=== PATIENT | male | born 1995 | race Caucasian/White ===

== ENCOUNTER → 2023-11-15 12:40 | Outpatient (BNVA) | payer SELFPAY | PROVIDERS: Visit Provider Physician Assistant | DX: Z02.79 Encounter for issue of other medical certificate (principal) ==

== ENCOUNTER 2025-01-28 13:04 | Outpatient (AMB) | payer OTHER, SELFPAY ==
--- NOTE | 2025-01-28 13:05 | MHC.PC.OV ---
Vital Signs 01/28/25 13:15 01/28/25 13:25 Height 5 ft 6 in Weight 180 lb BMI 29.0 BP 145/84 H 140/80 H Blood Pressure Location Rt brachial Lt brachial Position Sitting Sitting Respiration 16 Pulse 119 H 120 H Pulse Source Pulse Oximeter Auscultation Temp 98.3 F Temp Source Oral Pulse Oximetry (%) 100 Oxygen Delivery Method Room Air Intake Visit Reasons: AGER TENDER Intake Note: patient here for new patient visit Surface Water Manager Required: No Allergies No Known Allergies Allergy (Verified 01/28/25 13:20) Medication List - Last Reconciled 01/28/25 by Tammy Plummer CNP No Known Home Meds Tobacco use date assessed: 01/28/25 Dental Screening Dental Screen Date: 01/28/25 Did you have a dental visit in the last 12 months?: No Did you have a dental problem in the last 6 months where you did not have access to dental care?: No Was dental information given to patient?: Yes HPI HPI Comments History of Present Illness Details 29-year-old male presents to [facility] care. Prior PCP? - Unknown Last office visit/CPE/labs - Several years ago Acute issue(s) - Elevated BP and HR: Notes elevated blood pressure and heart rate during doctor's visits. His resting heart rate is usually in the 90s. Past Medical History - None Surgical History - Adenoidectomy, tonsillectomy Family History - None Social History - Currently smokes 5 cigarettes daily, has been smoking for 11 years, h/o no more than 10 cigarettes daily. History of vaping nicotine x 2 years, quit 2-3 months ago. Drinks 1 beer occasionally, has not drank in the past 3 months. Denies recreational drug use - Has been making healthy dietary choices. Active but does not exercise. Generally sleep well - He notes that he is sexually active, in a monogamous relationship, and has no concern for STDs Health maintenance - Does not recall if he has an eye exam by an biofuels production technician. Referred to Ophthalmology for routine care - Last dental visit was in 6 years ago; encouraged to schedule an appointment with his dentist for routine dental care - Unsure of last tetanus vaccine; Declined Tdap vaccine today - Has not been vaccinated for the flu this season; declines vaccination [facility] Surgical History (Updated 01/28/25 @ 13:15 by Beatrice Argueta MA) History of adenoidectomy History of tonsillectomy Family History (Updated 01/28/25 @ 13:13 by Beatrice Argueta MA) Father No problems noted. Mother No problems noted. Social History Housing: House Patient Tobacco Use Status: Current everyday Tobacco user Cigarettes Per Day: 5 e-Cigarette/Vaping Use: Former Use Second Hand Smoke Exposure: No service: No Current occupational status: employed Current occupation: construction Current occupational exposures/hazards: No Cognitive needs: No Hearing needs: No Vision needs: No Questionnaire PHQ-9 Over the last 2 weeks, how often have you been bothered by any of the following problems? 1. Little interest or pleasure in doing things: not at all 2. Feeling down, depressed, or hopeless: not at all 3. Trouble falling or staying asleep, or sleeping too much: not at all 4. Feeling tired or having little energy: not at all 5. Poor appetite or overeating: not at all 6. Feeling bad about yourself - or that you are a failure or have let yourself or your family down: not at all 7. Trouble concentrating on things, such as reading the newspaper or watching television: not at all 8. Moving or speaking so slowly that other people could have noticed. Or the opposite - being so fidgety or restless that you have been moving around a lot more than usual: not at all 9. Thoughts that you would be better off or of hurting yourself in some way: not at all Total score: 0 Depression Screening Interpretation: Negative Depression Screening Done: Yes 86063 - PHQ-9 Billing: Yes Source: Developed by Drs. Rex Hernadez, Leslie Romero, Pradip Lanza and colleagues, with an educational leandra from [email or web address]. Thrive Questionnaire Date Thrive assessed: 01/28/25 I am a: Patient What is your living situation today?: I have a steady place to live Within the past 12 months, did the food you bought not last and you didn't have the money to get more?: I choose not to answer this question Within the past 12 months, did you worry whether your food would run out before you got money to buy more?: I choose not to answer this question Do you have trouble paying for medicines?: I choose not to answer this question Do you have trouble getting transportation to medical appointments?: No Do you have trouble paying your heating and electricity bill?: I choose not to answer this question Do you have trouble taking care of your child, family member or friend?: No Do you have trouble with day-to-day activities such as bathing, preparing meals, shopping, managing finances, etc.?: No Are you currently unemployed and looking for a job?: I choose not to answer this question Are you interested in more education?: Yes Please select the resources that you would like help with: None Currently or been in a relationship where the following occur: No concerns reported THRIVE Score: 0 AUDIT C Alcohol Use Questionnaire (AUDIT-C) 1. How often do you have a drink containing alcohol?: Never Total Score: 0 JOCELYN-7 AMB Questionnaire JOCELYN-7 Date JOCELYN - 7 assessed: 01/28/25 Feeling nervous, anxious, or on edge: 1 = Several days Not being able to stop or control worryin = Several days Worrying too much about different things: 1 = Several days Trouble relaxin = Not at all Being so restless that it is hard to sit still: 0 = Not at all Becoming easily annoyed or irritable: 0 = Not at all Feeling afraid as if something awful might happen: 1 = Several days Total JOCELYN-7 score (0-4 normal; 5-9 mild; 10-14 moderate; 15-21 severe): 4 Source: Developed by Drs. Rex Hernadez, Leslie Romero, Pradip Lanza and colleagues, with an educational leandra from [email or web address]. JOCELYN-7 Assessment Billing JOCELYN-7 Assessment Tool: JOCELYN-7 Assessment 01027 Review of Systems Const Details: Denies chills, Denies fatigue, Denies fever(s), Denies headache(s) and Denies weakness HEENT Denies change in vision, Denies dizziness, Denies headache(s), Denies hearing loss, Denies nasal congestion, Denies sinus pain, Denies sinus pressure and Denies sore throat Card Denies chest pain, Denies lightheadedness, Denies dyspnea and Denies other (palpitations) Resp Denies cough, Denies dyspnea and Denies wheezing GI Denies abdominal pain, Denies melena, Denies hematochezia, Denies change in bowel habits, Denies dyspepsia and Denies nausea Denies hematuria and Denies dysuria Musc Denies abnormal gait, Denies myalgias, Denies arthralgias, Denies numbness and Denies tingling Skin/Breast Denies rash, Denies unusual bruising and Denies wounds Neuro Denies abnormal gait, Denies dizziness, Denies headache(s), Denies memory loss, Denies numbness, Denies Sensory deficit (Neuro), Denies tingling and Denies weakness Psych Denies anxiety, Denies depression and Denies memory loss Endo Denies cold intolerance, Denies fatigue, Denies heat intolerance, Denies polydipsia and Denies polyuria Clark/Lymph Denies easy bleeding and Denies easy bruising Aller/Immun Denies wheezing Physical exam (Primary Care) Depression Screening Interpretation: Negative Currently or been in a relationship where the following occur: No concerns reported Const Other: General: no acute distress, well developed, alert and awake Nutritional Appearance: well nourished Orientation/consciousness: patient oriented x3 HENMT Head: Yes normocephalic and Yes atraumatic Ears: hearing grossly normal bilaterally and TM's normal bilaterally General nose exam: Normal external nose present and Normal nares present Mouth: Normal oral and palatal mucosa present and moist mucous membranes Teeth and gingiva: dentition normal Throat: Yes oropharynx normal Eyes Pupils: Equal, round and reactive pupils present and Pupil accommodation reflex normal EOM: EOMs intact bilaterally Neck Neck: Yes normal visual inspection, Yes no lymphadenopathy and Yes trachea midline Thyroid: Thyroid normal Carotids: no bruits Lymphatic: no lymphadenopathy noted Chest Chest palpation & inspection: normal inspection of the chest Resp Effort & Inspection: normal respiratory effort Auscultation: clear to auscultation bilaterally Cardio Rate: regular rate Rhythm: regular rhythm Heart sounds: S1 normal heart sound present, S2 normal heart sound present, no gallops, no murmurs and no rubs Bruits: no abdominal aortic bruits and no carotid bruits GI Palpation (GI): No Abdominal aortic bruit present, Soft to palpation, nontender, No hepatosplenomegaly present and No Rebound tenderness present Auscultation: normal bowel sounds General: Yes no CVA tenderness Back/Spine/Pelvis Back: no CVA tenderness Cervical Spine: cervical ROM normal and No Cervical spine tenderness Thoracic/Lumbar Spine: thoraco-lumbar ROM normal, No pain with thoraco-lumbar ROM, No thoracic spinal tenderness and No lumbar spinal tenderness Skin General: warm and dry. Normal skin color. Normal skin turgor Lesions: no lesions Rashes: no rashes Trauma: no lacerations or abrasions Wounds: no wounds Nails: normal Neuro General: patient oriented x3, gait normal and CN's II-XI intact bilaterally Cranial nerves: Yes Equal, round and reactive pupils present Cognition (Neuro): normal cognition Gait exam (Neuro): Normal gait present Motor exam (neuro): 5/5 motor strength present throughout Sensory Exam: No Sensory deficit (Neuro) Deep tendon reflexes (DTR's): Right patellar reflex intensity grade: 2+ and Left patellar reflex intensity grade: 2+ Extrem General: Yes normal to inspection, No edema and No calf tenderness Psych Appearance: grossly normal Affect: normal affect Attitude: cooperative Thought process: Normal thought process present Coding Level of Care Code New Pt Level 3 (70809) New Pt Prev Care 18-39yr(35389 Diagnoses Normal physical examination, routine Z00.00 Elevated blood pressure reading without diagnosis of hypertension R03.0 Eye exam, routine Z01.00 Smoking 1/2 pack a day or less F17.210 Laboratory tests ordered as part of a complete physical exam (CPE) Z00.00 Additional Codes JOCELYN-7 Assessment Billing - JOCELYN-7 Assessment Tool: JOCELYN-7 Assessment 34321 ([id number]) PHQ-9 - 28474 - PHQ-9 Billing: Yes ([id number]) Assessment & Plan Assessment & Plan (1) Normal physical examination, routine: Code(s): Z00.00 - Encounter for general adult medical examination without abnormal findings Category: Medical Plan: No significant functional limitation noted. Health that diet and routine exercise encouraged. Perform lab work 2-3 days before next visit. Follow-up in 3 weeks for elevated blood pressure and labs review. Return sooner with symptoms or concerns. Verbalized understanding and agreed with treatment plan. (2) Elevated blood pressure reading without diagnosis of hypertension: Code(s): R03.0 - Elevated blood-pressure reading, without diagnosis of hypertension Category: Medical Plan: Resting blood pressure is 140/80, slightly above goal of less than 140/90, heart rate is 120. His blood pressure and heart rate are usually elevated during doctor's visits. His resting heart rate is usually in the 90s. Routine exercise and low-sodium diet encouraged. Follow-up in 3 weeks for blood pressure and heart rate monitoring. Verbalized understanding and agreed with the plan. (3) Eye exam, routine: Code(s): Z01.00 - Encounter for examination of eyes and vision without abnormal findings Category: Medical Plan: Does not recall if he has an eye exam by an biofuels production technician. Referred to Ophthalmology for routine care. (4) Smoking 1/2 pack a day or less: Code(s): F17.210 - Nicotine dependence, cigarettes, uncomplicated Category: Social Hx Plan: He currently smokes 5 cigarettes daily and has been smoking for 11 years, h/o no more than 10 cigarettes daily. Instructed on the health risks and complications of smoking cigarettes encouraged smoking cessation. He notes that he intends to stop smoking and will purchase [id number] nicotine patch or gum. (5) Laboratory tests ordered as part of a complete physical exam (CPE): Code(s): Z00.00 - Encounter for general adult medical examination without abnormal findings Category: Medical Plan: Fasting labs ordered as part of a complete physical exam. Advised to fast for at least 10 hours before getting labs drawn. May drink water Verbalized understanding and agreed with treatment plan. Orders: Orders Complete Blood Count Auto Diff Today Z00.00 - Encounter for general adult medical examination without abnormal findings Comprehensive [place]. Panel Fast Today Z00.00 - Encounter for general adult medical examination without abnormal findings Vitamin D 25-OH Total Today Z00.00 - Encounter for general adult medical examination without abnormal findings Lipid Panel Today Z00.00 - Encounter for general adult medical examination without abnormal findings Microalbumin, Random (w Creat) Today Z00.00 - Encounter for general adult medical examination without abnormal findings TSH reflex Free T4 Today Z00.00 - Encounter for general adult medical examination without abnormal findings UA CC w/rflx Micro + Cult Today Z00.00 - Encounter for general adult medical examination without abnormal findings
[2025-01-28 13:15] VITALS: BP 145/84; PULSE 119; RESP 16; TEMP 36.8; O2SAT 100; BMI 29.0
[2025-01-28 13:25] VITALS: BP 140/80; PULSE 120
== END 2025-01-28 13:45 | disposition home or self-care (01) ==
LOC: HO.HMCFM 13:05
PROVIDERS: Visit Provider Nurse Practitioner Family
DX: Z00.00 Encounter for general adult medical examination without abnormal findings (principal); R03.0 Elevated blood-pressure reading, without diagnosis of hypertension; F17.210 Nicotine dependence, cigarettes, uncomplicated

== ENCOUNTER → 2025-01-28 13:04 | Outpatient (BNVA) | payer OTHER, SELFPAY | PROVIDERS: Visit Provider Nurse Practitioner Family | DX: Z00.01 Encounter for general adult medical examination with abnormal findings (principal); R03.0 Elevated blood-pressure reading, without diagnosis of hypertension; F17.210 Nicotine dependence, cigarettes, uncomplicated; Z71.6 Tobacco abuse counseling | CPT/HCPCS: 96127; 99202; 99385 ==

== ENCOUNTER 2025-02-12 13:10 | Outpatient (REF) | payer OTHER, SELFPAY ==
--- OUTSIDE RECORDS SUMMARY | 2025-02-12 13:38 | XMS_ITS | Encounter Summary ---
Author Organization [facility] Address [address] [place] [id number] Phone Care Team Providers Care Vp Client Services Name Role Phone Rex Rojo MD Primary Care Provider [phone] Encounter Details Date Type Department Care Team (Late st Contact Info) Description 03/23/2018 Conversion Encounter [facility] [address] [place] [address] Rex Rojo MD [address] [place] [address] Social History Tobacco Use Types Packs/Day Years Used Date Smoking Tobacco: Never Assessed Sex and Gender Information Value Date Recorded Sex Assigned at Not on file Legal Sex Male 6:09 PM EDT Gender Identity Not on file Sexual Orientation Not on file documented as of this encounter Plan of Treatment Not on file documented as of this encounter Visit Diagnoses Not on filedocumented in this encounter Care Teams Vp Client Services Relationship Specialty Start Date End Date Rex Rojo MD [address] [place] [address] PCP - General 03/12/18 08/05/24 documented as of this encounter
--- OUTSIDE RECORDS SUMMARY | 2025-02-12 13:38 | XMS_ITS | Clinical Summary ---
Author Organization [facility] Address [address] [place] [id number] Phone Care Team Providers Care Financial Analysis Consultant Name Role Phone Unavailable Primary Care Provider Unavailabl e Immunizations Immunization Administration Dates Next Due DTaP 01/14/2002, 8,07/08/1997,04/29,02/23/1997 HPV, Quadrivalent 07/08/2014,08/06/2013,06/05/20 13 Hep B, ped/adol 10/04/1997,02/23/1997,1996 Hib (PRP-T) 04/11/1998, 7,04/29/1997,02/23 IPV 01/14/2002 Influenza, injectable, quadrivalent 07/27/2011 Influenza, injectable, quadr ivalent, preservative free 07/08/2014 MMR 12/26/2000,12/29/1997 Meningococcal Conj (Menactra) MCV4P 06/05/2013,0 02/11/2008 OPV 12/29/1997,04/29/1997,02/23/1997 Tdap 02/11/2008 Varicella 02/11/2008,12/26/2000 Family History Relation Name Status Comments Father Alive healthy Father's Sister Alive Maternal Grandfather Maternal Grandmother cancer/ Mother Alive bi-polar/thyroi d Other Alive Siblings: Social History Tobacco Use Types Packs/Day Years Used Date Smoking Tobacco: Never Assessed Sex and Gender Information Value Date Recorded Sex Assigned at Not on file Legal Sex Male 6:09 PM EDT Gender Identity Not on file Sexual Orientation Not on file Last Filed Vital Signs Vital Sign Reading Time Taken Comments Blood Pressure 118/72 04/07/2015 12:00 AM EDT Pulse 104 09/11/2013 12:00 AM EST Temperature 37.2 ??C (98.9 ??F) 04/07/2015 12:00 AM E DT Respiratory Rate - - Oxygen Saturation 100% 09/11/2013 12:00 AM EST Inhaled Oxygen Concentration - - Weight 60 kg (132 lb 3.2 oz) 04/07/2015 12:00 AM EDT Height 168.3 cm (5' 6.25 ) 04/07/2015 12:00 AM E DT Body Mass Index 21.18 04/07/2015 12:00 AM EDT Plan of Treatment Health Maintenance Due Date Last Done Comments DTaP,Tdap,and Td Vaccines (7 - Td or Tdap) 02/10/2018 02/11/2008, 01/14/2002, 04/11/1998, Additional history exists Influenza Vaccines (#1) 2024 07/08/2014, 07/27 COVID-19 Vaccine ( season) 2024 Hepatitis B Vaccines Completed 10/04/1997, 02/23/1997, 1996 HIB Vaccines Completed 04/11/1998, 02/1997, 04/29/1997, Additional history exists MMR Vaccines Completed 12/26/2000, 12/29/1997 IPV Vaccines Completed 01/14/2002, 12/06, 04/29/1997, Additional history exists Varicella Vaccines Completed 02/11/2008, 12/26/2000 Meningococcal Vaccine Completed 06/05/2013, 008 HPV Vaccines Completed 07/08/2014, 01/2013, 06/05/2013 Hepatitis A Vaccines Aged Out No long er eligible based on patient's age to complete this topic Men B Vaccine Aged Out No longer elig ible based on patient's age to complete this topic Pneumococcal Vaccine Aged Out No long er eligible based on patient's age to complete this topic
[2025-02-12 14:19] LABS: MANUAL DIFF FLAG NO
[2025-02-12 14:29] LABS: Basophils Percent Auto 0.3 % (0-2); Eosinophils Absolute Auto 0.1 X10*3/uL (0.0-0.4); Eosinophils Percent Auto 1.3 % (0-4); Hematocrit 42.8 % (42.0-52.0); Hemoglobin 14.9 g/dl (14.0-18.0); Imm Gran Abs Auto 0.05 X10*3/uL (0.00-0.03); Imm Gran Pct Auto 0.5 % (0.0-0.4); Lymphocytes Absolute Auto 2.6 X10*3/uL (1.2-4.9); Lymphocytes Percent Auto 27.4 % (20-40); Mean Corpuscular HGB Conc 34.8 g/dl (31.0-36.0); Mean Corpuscular Hemoglobin 30.3 pg (27.0-33.0); Mean Corpuscular Volume 87.2 fL (80.0-98.0); Monocytes Absolute Auto 0.8 X10*3/uL (0.1-1.2); Monocytes Percent Auto 8.3 % (2-11); Neutrophils Percent Auto 62.2 % (45-73); Platelet Count 345 X10*3/uL (160-400); Red Blood Count 4.91 X10*6/uL (4.60-5.80); Red Cell Distribution Width 11.9 % (11.0-16.0); White Blood Count 9.6 X10*3/uL (4.8-10.8)
[2025-02-12 14:37] LABS: Appearance Urine Clear; Color Urine Yellow; Glucose Urine UA Negative (Negative); Leukocyte Esterase Urine Negative (Negative); Nitrite Urine Negative (Negative); PH 5.5 (5.0-9.0); Urine Blood Negative (Negative); Urine Ketones Trace mg/dL (Negative); Urine Protein Negative (Neg-Trace)
[2025-02-12 15:00] LABS: Creatinine Urine 202.57 mg/dL; Microalbum/Creatinine Ratio Ur 5.4 ug/mg cr (<30)
[2025-02-12 15:14] LABS: Alanine Aminotransferase 31 U/L (0-40); Albumin Level 4.7 g/dL (3.5-5.0); Alkaline Phosphatase 95 U/L (39-117); Anion Gap 12 (12-20); Aspartate Amino Transferase 25 U/L (5-37); Bilirubin Total 0.8 mg/dL (0.0-1.0); Blood Urea Nitrogen 10 mg/dL (9-16); Calcium 9.8 mg/dL (8.4-10.2); Carbon Dioxide 27 mmol/L (22-29); Chloride 105 mmol/L (96-108); Cholesterol 149 mg/dL (<200); Estimated Glomerular Filt Rate > 60; Glucose Fasting 78 mg/dL (60-99); HDL Cholesterol 43 mg/dL (>40); LDL Cholesterol Calculated 93 mg/dL (<100); Potassium 3.7 mmol/L (3.3-5.1); Sodium 140 mmol/L (135-145); Total Protein 7.6 g/dL (6.5-8.0); Triglycerides 68 mg/dL (<150)
[2025-02-12 15:23] LABS: TSH reflex Free T4 0.77 uIU/mL (0.32-4.0); Vitamin D 25-OH Total 20.1 ng/mL (>30)
== END 2025-02-12 13:11 | disposition home or self-care (01) ==
LOC: HO.WFDLDS 13:10
PROVIDERS: Visit Provider Nurse Practitioner Family
DX: Z00.00 Encounter for general adult medical examination without abnormal findings (principal)
CPT/HCPCS: 36415; 80053; 80061; 81003; 82043; 82306; 82570; 84443; 85025

== ENCOUNTER 2025-02-23 10:57 | Outpatient (AMB) | payer OTHER, SELFPAY ==
--- NOTE | 2025-02-23 11:00 | A.OFFPC_ITS ---
Vital Signs 02/23/25 11:12 02/23/25 11:48 Height 5 ft 6 in Weight 179 lb 2 oz BMI 28.9 BP 142/85 H 136/70 Blood Pressure Location Rt brachial Rt brachial Position Sitting Sitting Respiration 20 Pulse 120 H 100 Pulse Source Pulse Oximeter Auscultation Temp 97.9 F Temp Source Oral Pulse Oximetry (%) 100 Oxygen Delivery Method Room Air Intake Visit Reasons: 3 wks elevated BP, labs review Intake Note: patient here for follow up on elevated BP and lab review Fish Technologist Required: No Allergies No Known Allergies Allergy (Verified 02/23/25 11:46) Medication List - Last Reconciled 02/23/25 by Tammy Plummer CNP No Known Home Meds Tobacco use date assessed: 02/23/25 Dental Screening Dental Screen Date: 02/23/25 Did you have a dental visit in the last 12 months?: No Did you have a dental problem in the last 6 months where you did not have access to dental care?: No Was dental information given to patient?: No HPI HPI Comments History of Present Illness Details 29-year-old male presents for elevated b lood pressure without diagnosis of hypertension and recent lab results review follow-up. He notes that he has been making healthy dietary choices including low sodium. He states that his blood pressure and heart rate have been elevated at doctor's visits since the of his child and the of his father. He reports a resting heart rate of 77, not 90 as reported at his last visit. He offers no complaints and denies acute symptoms at this time. [facility] Surgical History (Updated 01/28/25 @ 13:15 by Beatrice Argueta MA) History of adenoidectomy History of tonsillectomy Family History (Updated 01/28/25 @ 13:13 by Beatrice Argueta MA) Father No problems noted. Mother No problems noted. Social History Housing: House Patient Tobacco Use Status: Current everyday Tobacco user Cigarettes Per Day: 5 e-Cigarette/Vaping Use: Former Use Second Hand Smoke Exposure: No service: No Current occupational status: employed Current occupation: construction Current occupational exposures/hazards: No Cognitive needs: No Hearing needs: No Vision needs: No Questionnaire Thrive Questionnaire Date Thrive assessed: 01/28/25 I am a: Patient What is your living situation today?: I have a steady place to live Within the past 12 months, did the food you bought not last and you didn't have the money to get more?: I choose not to answer this question Within the past 12 months, did you worry whether your food would run out before you got money to buy more?: I choose not to answer this question Do you have trouble paying for medicines?: I choose not to answer this question Do you have trouble getting transportation to medical appointments?: No Do you have trouble paying your heating and electricity bill?: I choose not to answer this question Do you have trouble taking care of your child, family member or friend?: No Do you have trouble with day-to-day activities such as bathing, preparing meals, shopping, managing finances, etc.?: No Are you currently unemployed and looking for a job?: I choose not to answer this question Are you interested in more education?: Yes Please select the resources that you would like help with: None Currently or been in a relationship where the following occur: No concerns reported THRIVE Score: 0 JOCELYN-7 AMB Questionnaire JOCELYN-7 Date JOCELYN - 7 assessed: 01/28/25 Source: Developed by Drs. Rex Hernadez, Leslie Romero, Pradip Lanza and colleagues, with an educational leandra from [employer]. Review of Systems Const Details: Const Denies chills, Denies fatigue, Denies fever(s), Denies headache(s) and Denies weakness ENT Denies dizziness and Denies headache(s) Card Denies chest pain, Denies lightheadedness, Denies dyspnea and Denies other (Palpitations) Resp Denies cough, Denies dyspnea, Denies wheezing and Denies other ( shortness of breath) GI Denies abdominal pain, Denies melena, Denies hematochezia, Denies change in bowel habits, Denies dyspepsia and Denies nausea Denies hematuria and Denies dysuria Musc Denies abnormal gait, Denies myalgias, Denies arthralgias, Denies numbness and Denies tingling Skin/Breast Denies rash, Denies unusual bruising and Denies wounds Neuro Denies abnormal gait, Denies dizziness, Denies headache(s), Denies memory loss, Denies numbness, Denies Sensory deficit (Neuro), Denies tingling and Denies weakness Psych Denies anxiety, Denies depression, Denies memory loss Endo Denies cold intolerance, Denies fatigue, Denies heat intolerance, Denies polydipsia and Denies polyuria Aller/Immun Denies wheezing Physical exam (Primary Care) Tobacco/Smoking Status: Tobacco use Status Tobacco use date assessed 01/28/25 02/23/25 11:01 Patient Tobacco Use Status Current everyday Tobacco 02/23/25 11:01 e-Cigarette/Vaping Use Former Use 02/23/25 11:01 Thrive Assessment: Date of Thrive Assessment Date Thrive assessed 01/28/25 02/23/25 11:01 Currently or been in a relationship where the following occur: No concerns reported Const Other: General: no acute distress and well developed Nutritional Appearance: well nourished Orientation/consciousness: patient oriented x3 HENMT Head: Yes normocephalic and Yes atraumatic Eyes General: appearance normal, both eyes and all related structures Pupils: Equal, round and reactive pupils present EOM: EOMs intact bilaterally Resp Effort & Inspection: normal respiratory effort Auscultation: clear to auscultation bilaterally Cardio Rate: regular rate Rhythm: regular rhythm Heart sounds: S1 normal heart sound present, S2 normal heart sound present, no gallops, no murmurs and no rubs GI Palpation (GI): No Abdominal aortic bruit present, Soft to palpation, nontender, No hepatosplenomegaly present and No Rebound tenderness present Auscultation: normal bowel sounds General: Yes no CVA tenderness Back/Spine/Pelvis Back: no CVA tenderness Cervical Spine: cervical ROM normal and No Cervical spine tenderness Thoracic/Lumbar Spine: thoraco-lumbar ROM normal, No pain with thoraco-lumbar ROM, No thoracic spinal tenderness and No lumbar spinal tenderness Extrem General: Yes normal to inspection, No edema and No calf tenderness Skin General: warm and dry. Normal skin color. Normal skin turgor Neuro General: patient oriented x3, gait normal and no focal neuro deficit Cranial nerves: Yes Equal, round and reactive pupils present Cognition (Neuro): normal cognition Gait exam (Neuro): Normal gait present Sensory Exam: No Sensory deficit (Neuro) Psych Appearance: grossly normal Affect: normal affect Attitude: cooperative Thought process: Normal thought process present Coding Level of Care Code Est Pt Level 3 (41436) Diagnoses Vitamin D deficiency E55.9 Elevated blood pressure reading without diagnosis of hypertension R03.0 Assessment & Plan Assessment & Plan (1) Vitamin D deficiency: Code(s): E55.9 - Vitamin D deficiency, unspecified Category: Medical Plan: Recent vitamin-D level is low, 20.1. Remainder of lab results are unremarkable. Vitamin D3 25 mcg daily ordered; advised to take as prescribed. Encouraged to get out on the sun more and use sunscreen. Advised to perform blood work 2-3 days before next visit. Follow-up for telehealth visit in 6 weeks. Return sooner with symptoms or concerns. Verbalized understanding and agreed with the plan. (2) Elevated blood pressure reading without diagnosis of hypertension: Code(s): R03.0 - Elevated blood-pressure reading, without diagnosis of hypertension Category: Medical Plan: Resting blood pressure is 136/70, within goal of less than 140/90. Heart rate is 100. Low-sodium diet and routine exercise encouraged. Follow-up with symptoms or concerns. Verbalized understanding and agreed with the plan. Orders: Orders Vitamin D 25-OH Total 6 Weeks E55.9 - Vitamin D deficiency, unspecified
[2025-02-23 11:12] VITALS: BP 142/85; PULSE 120; RESP 20; TEMP 36.6; O2SAT 100; BMI 28.9
[2025-02-23 11:48] VITALS: BP 136/70; PULSE 100
--- OUTSIDE RECORDS SUMMARY | 2025-02-23 13:03 | XMS_ITS | Encounter Summary ---
Author Organization [facility] Address [address] [place] [address] Care Team Providers Care Bone Cooking Operator Name Role Phone Kendall Segovia MD Primary Care Provider [phone] Encounter Details Date Type Department Care Team Description 02/13/2022 Telephone Adult Medicine - [place] [address] [place] [address] Kristel Madsen PA-C [address] [place] [address] Social History Tobacco Use Types Packs/Day Years Used Date Smoking Tobacco: Every Day Vapor Smokeless Tobacco: Never Alcohol Use Standard Drinks/Week Comments Yes 0 (1 standard drink = 0.6 oz pur e alcohol) occ Alcohol Habits Answer Date Recorded How often do you have a drink containing alcohol ? Never 09/11/2019 How many drinks containing a lcohol do you have on a typical day when you are drinking? Not asked How often do you have six or more drinks on one occasion? Not asked Sex Assigned at Date Recorded Not on file COVID-19 Exposure Response Date Recorded In the last 10 days, have yo u been in contact with someone who was confirmed or suspected to have Coronavirus/COVID-19? No / Unsure 02/13/2022 10:28 AM EDT documented as of this encounter Plan of Treatment Not on file documented as of this encounter Visit Diagnoses Not on filedocumented in this encounter Care Teams Bone Cooking Operator Relationship Specialty Start Date End Date Kendall Segovia MD [address] [place] [address] [id number] PCP - General Internal Medicine 02/07/22 documented as of this encounter
--- OUTSIDE RECORDS SUMMARY | 2025-02-23 13:03 | XMS_ITS | Encounter Summary ---
Author Organization [facility] Address [address] [place] [address] Care Team Providers Care Telecommunications Network Engineer Name Role Phone Kendall Segovia MD Primary Care Provider [phone] Reason for Visit * Reason Comments E-prescribe Rx Request Encounter Details Date Type Department Care Team Description 03/12/2022 Refill Adult Medicine - [place] [address] [place] [address] Kristel Madsen PA-C [address] [place] [id number] E-prescribe Rx Request Social History Tobacco Use Types Packs/Day Years [...] AM EDT documented as of this encounter Miscellaneous Notes * Telephone Encounter - Michelle Garrison M.A. - 03/15/2022 12:14 PM EDT Date of last office visit was 02/13/22 Lab Results Component Value Date NA 140 05/04/2021 K 4.1 05/04/2021 CO2 27 05/04/2021 CL 106 05/04/2021 BUN 9 05/04/2021 CREAT 1.07 05/04/2021 GLU 123 05/04/2021 CA 9.5 05/04/2021 GFR > 60 05/04/2021 Lab Results Component Value Date WBC 8.2 05/04/2021 HGB 15.2 05/04/2021 HCT 44.3 05/04/2021 MCV 91.3 05/04/2021 PLTCT 324 05/04/2021 documented in this encounter Plan of Treatment Not on file documented as of this encounter Visit Diagnoses Not on filedocumented in this encounter Care Teams Telecommunications Network Engineer Relationship Specialty Start Date End Date Kendall Segovia MD [address] [place] [id number] PCP - General Internal Medicine 02/07/22 documented as of this encounter
--- OUTSIDE RECORDS SUMMARY | 2025-02-23 13:03 | XMS_ITS | Encounter Summary ---
Author Organization [facility] Address [address] [place] [address] Care Team Providers Care Crocodile Farmer Name Role Phone Jem Marquis MD Primary Care Provider Rex Harper DO Primary Care Provider Monae Kendall Bowser MD Primary Care Provider [phone] Encounter Details Date Type Department Care Team Description 09/03/2019 Release of Information Medical Records [address] [place] [address] Abstract, Provider Social History Tobacco Use Types Packs/Day Years Used Date Smoking Tobacco: Never Assessed Alcohol Habits Answer Date Recorded How often do you have a drink containing alcohol ? Never 09/11/2019 How many drinks containing a lcohol do you have on a typical day when you are drinking? Not asked How often do you have six or more drinks on one occasion? Not asked Sex Assigned at Date Recorded Not on file documented as of this encounter Nursing Notes * Ree Stoner - 09/03/2019 10:09 AM EDT AUTHORIZATION TO OBTAIN RECORDS MAILED TO [facility]. documented in this encounter Plan of Treatment Not on file documented as of this encounter Visit Diagnoses Not on filedocumented in this encounter Care Teams Crocodile Farmer Relationship Specialty Start Date End Date Jem Marquis MD PCP - General Internal Medicine 08/12/19 04/06/21 Rex Jay DO PCP - General Internal Medicine 04/07/21 02/06/22 Kendall Segovia MD [address] [place] [phone] PCP - General Internal Medicine 02/07/22 documented as of this encounter
--- OUTSIDE RECORDS SUMMARY | 2025-02-23 13:03 | XMS_ITS | Encounter Summary ---
Author Organization [facility] Address [address] [place] [phone] Phone Care Team Providers Care Official Greeter Name Role Phone Rex Rojo MD Primary Care Provider [phone] Encounter Details Date Type Department Care Team (Late st Contact Info) Description 03/23/2018 Conversion Encounter [facility] [address] [place] [address] Rex Rojo MD [address] [place] [address] Social History Tobacco Use Types Packs/Day Years [...] on filedocumented in this encounter Care Teams Official Greeter Relationship Specialty Start Date End Date Rex Rojo MD [address] [place] [address] PCP - General 03/12/18 08/05/24 documented as of this encounter
--- OUTSIDE RECORDS SUMMARY | 2025-02-23 13:03 | XMS_ITS | Clinical Summary ---
Author Organization [facility] Address [address] [place] [phone] Phone Care Team Providers Care Communications Analyst Name Role Phone Unavailable Primary Care Provider [...]
--- OUTSIDE RECORDS SUMMARY | 2025-02-23 13:03 | XMS_ITS | Encounter Summary ---
Author Organization [facility] Address [address] [place] [address] Care Team Providers Care Box Brander Name Role Phone Rex Jay DO Primary Care Provider Kendall Brantley MD Primary Care Provider [phone] Encounter Details Date Type Department Care Team Description 05/29/2021 Pt. Non Urgent Medic al Question Adult Medicine [address] [address] Rex Jay DO Social History Tobacco Use Types Packs/Day Years [...] Exposure Response Date Recorded In the last month, have you been in contact with someone who was confirmed or suspected to have Coronavirus / COVID-19? No / Unsure 05/04/2021 11:10 AM EDT documented as of this encounter Progress Notes * Shira Wiggins M.A. - 05/30/2021 7:42 AM EDT Please see Lucy msmichaelle and advise documented in this encounter Miscellaneous Notes * Telephone Encounter - Shira Wiggins M.A. - 05/30/2021 7:41 AM EDTFrom: Johnny Clements Jr To: Amos Jay Sent: 05/29/2021 3:32 PM EDT Subject: Sleep Issues Rudilo, I've been experiencing sleeping issues such as having a very difficult time falling asleep and unable to stay asleep every night. This is not a new thing since taking the bupropion, I have tried several over the counter sleep aids and nothing has seemed to help. I was not sure if I should make an appointment to be seen or i f there were other methods you could suggest to try. Thank you, Johnny Clements documented in this encounter Plan of Treatment Not on file documented as of this encounter Visit Diagnoses Not on filedocumented in this encounter Care Teams Box Brander Relationship Specialty Start Date End Date Rex Jay DO PCP - General Internal Medicine 04/07/21 02/06/22 Kendall Segovia MD [address] [place] [id number] PCP - General Internal Medicine 02/07/22 documented as of this encounter
== END 2025-02-23 11:59 | disposition home or self-care (01) ==
LOC: HO.HMCFM 10:57
PROVIDERS: PCP Nurse Practitioner Family; Visit Provider Nurse Practitioner Family
DX: E55.9 Vitamin D deficiency, unspecified (principal); R03.0 Elevated blood-pressure reading, without diagnosis of hypertension

== ENCOUNTER → 2025-02-23 10:57 | Outpatient (BNVA) | payer OTHER, SELFPAY | PROVIDERS: Visit Provider Nurse Practitioner Family | DX: E55.9 Vitamin D deficiency, unspecified (principal); R03.0 Elevated blood-pressure reading, without diagnosis of hypertension | CPT/HCPCS: 99212 ==